=== PATIENT | male | born 2000 | race Caucasian/White ===

== ENCOUNTER → 2022-05-09 15:17 | Outpatient (CLI) | payer OTHER, SELFPAY ==
--- NOTE | ~2022-05-09 | US_ITS ---
US scrotum doppler INDICATION: Left epididymal cysts. TECHNIQUE: Testicular sonogram utilizing grayscale and color Doppler FINDINGS: The testes are normal in size and appearance. No focal lesions are seen. The right testes measures 4.9 x 2.2 x 3.7 cm centimeters, and the left testis measures 4.1 x 2.2 x 2.6 cm cm. There is normal vascular flow to both testes. There is a 3 mm right epididymal cyst. Left epididymis within normal limits. There is no varicocele or hydrocele. IMPRESSION: 1. Right epididymal cyst measuring 3 mm. Reviewed, dictated and finalized at location A.
== END ==
PROVIDERS: PCP Urology; Visit Provider Urology
DX: N50.3 Cyst of epididymis (principal)
CPT/HCPCS: 76870; 93976

== ENCOUNTER → 2022-05-15 09:32 | Outpatient (CLI) | payer OTHER, SELFPAY ==
--- NOTE | ~2022-05-15 | US_ITS ---
EXAMINATION: US soft tissue groin RT, US soft tissue groin LT DATE: 05/15/2022 10:10 (accession [id number]), 05/15/2022 10:09 (accession [id number]) INDICATION: Bilateral groin pain times several months. TECHNIQUE: Grayscale and Doppler ultrasound images of the bilateral groins were obtained. COMPARISON: None. FINDINGS: No solid or cystic soft tissue mass detected. No hernia detected. Normal-appearing and norm al-sized lymph nodes are present in both inguinal regions. IMPRESSION: Normal ultrasound groin soft tissue findings. Reviewed, dictated and finalized at location K. IMPRESSION: Normal ultrasound groin soft tissue findings.
== END ==
PROVIDERS: Visit Provider Physician Assistant
DX: R10.32 Left lower quadrant pain (principal); R10.31 Right lower quadrant pain
CPT/HCPCS: 76882

== ENCOUNTER 2024-12-08 14:05 | Outpatient (CLI) | payer OTHER, SELFPAY | END 2024-12-08 14:06 | disposition home or self-care (01) | PROVIDERS: PCP Family Medicine; Visit Provider Physician Assistant Medical | DX: N50.3 Cyst of epididymis (principal); I86.1 Scrotal varices | CPT/HCPCS: 76870; 93976 ==

== ENCOUNTER 2025-06-15 12:48 | Outpatient (CLI) | payer OTHER, SELFPAY ==
--- NOTE | ~2025-06-15 | XR_ITS ---
LUMBAR SPINE INDICATION: Low back pain TECHNIQUE: 3 views lumbar spine COMPARISON: None FINDINGS: No fracture, subluxation or dislocation. No evidence for spondylolysis or spondylolisthesis. Vertebral bodies and disk spaces are preserved. IMPRESSION: 1: No significant abnormality of the lumbar spine identified. Reviewed, dictated and finalized at location O.
== END 2025-06-15 12:49 | disposition home or self-care (01) ==
LOC: MICIMG 12:49
PROVIDERS: PCP Family Medicine; Visit Provider Physician Assistant Medical
DX: M54.50 Low back pain, unspecified (principal)
CPT/HCPCS: 72100